=== PATIENT | male | born 2000 | race Caucasian/White ===

== ENCOUNTER 2021-07-14 04:39 | Emergency (ER) | payer OTHER ==
[~2021-07-14] VITALS: Ht 177.8 cm; Wt 99.8 kg
[2021-07-14 04:44] VITALS: BP 117/57
--- NOTE | 2021-07-14 04:44 | NUR ---
PATIENT IN TENT
--- NOTE | 2021-07-14 04:55 | NUR ---
SEEN BY ERMD NO NURSING INTERVENTIONS NEEDED FOR PATIENT.
[2021-07-14] MEDS ORDERED: DEC4 PO (04:59)
[2021-07-14] MEDS ORDERED: ZINC50TA76 PO (04:59)
[2021-07-14] MEDS ORDERED: IVER3TAB2 PO (04:59)
[2021-07-14 05:05] VITALS: BP 117/57
--- NOTE | 2021-07-14 05:05 | NUR ---
Patient discharged with v/s stable. Written and verbal after care instructions given and explained. Patient alert, oriented and verbalized understanding of instructions. Ambulatory with steady gait. All questions addressed prior to discharge. ID band removed. Patient advised to follow up with PMD. Rx of DECADRON, IVERMECTIN, AND ZINC given. Patient educated on indication of medication including possible reaction and side effects. Opportunity to ask questions provided and answered.
== END 2021-07-14 05:05 | disposition home or self-care (01) ==
LOC: MED 04:39
DX: U07.1 COVID-19 (principal); Z88.1 Allergy status to other antibiotic agents
CPT/HCPCS: 99283